=== PATIENT | female | born 1990 | race African-American/Black ===

== ENCOUNTER 2018-06-27 04:20 | Emergency (ER) | payer OTHER ==
[2018-06-27 04:50] LABS: URINE BLOOD (Dip) POC 3+ (NEGATIVE); URINE GLUCOSE (Dip) POC Negative (NEGATIVE); URINE KETONES (Dip) POC Negative (NEGATIVE); URINE LEUKOCYTE EST (Dip) POC 2+ (NEGATIVE); URINE NITRITE (Dip) POC Negative (NEGATIVE); URINE TOTAL PROTEIN POC 1+ (NEGATIVE)
[2018-06-27] MEDS: CEFTRIAXONE 1 GM INJ IM (05:14)
[2018-06-27] MEDS: traMADol 50 MG TAB PO (05:20)
== END 2018-06-27 05:36 | disposition home or self-care (01) ==
LOC: FTE 04:20
DX: N30.01 Acute cystitis with hematuria (principal)
CPT/HCPCS: 81003; 96372; 99284-25